=== PATIENT | female | born 2005 | race Asian ===

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

== ENCOUNTER 2023-04-03 08:34 | Outpatient (AMB) | payer BC, OTHER, SELFPAY ==
--- NOTE | 2023-04-03 08:47 | A.OFFPC_ITS ---
Vital Signs 04/03/23 08:50 Height 5 ft 1 in Weight 154 lb 4 oz BMI 29.1 BP 108/64 Blood Pressure Location Rt brachial Position Sitting Pulse 79 Pulse Source Pulse Oximeter Pulse Oximetry (%) 98 Oxygen Delivery Method Room Air Intake Visit Reasons: Annual PE/OK per Dr. Castañeda PHQ9 Is last menstrual period known: Yes Last menstrual period: 03/31/23 Allergies No Known Allergies Allergy (Verified 04/03/23 09:47) Medication List - Last Reconciled 04/03/23 by Katiana Proctor MD copper (ParaGard T 380A) intrauterine tretinoin 0.025% (Retin-A) appl topical Tobacco use date assessed: 04/03/23 Dental Screening Dental Screen Date: 04/03/23 Did you have a dental visit in the last 12 months?: Yes Did you have a dental problem in the last 6 months where you did not have access to dental care?: No Was dental information given to patient?: Patient has dentist HPI Annual PE/OK per Dr. Castañeda PHQ9 HPI Details 17-year-old lady here today for physical exam, and to establish care with a new PCP. She currently uses Retin-A for treatment of acne. Currently home from college for the holidays. Has no complaints at present time. Currently sees her own OBGYN Dr. Cantu, who inserted patient's IUD, currently on Paragard T PFSH Medical History (Updated 04/26/23 @ 19:55 by Katiana Proctor MD) Anxiety and depression Overweight (BMI 25.0-29.9) Acne Surgical History (Updated 04/03/23 @ 09:51 by Katiana Proctor MD) H/O wisdom tooth extraction Family History (Updated 04/26/23 @ 19:49 by Katiana Proctor MD) Mother Essential hypertension Hyperuricemia Valentino's palsy Father Hypercholesteremia Prostate cancer Social History Housing: House Alcohol intake: never Patient Tobacco Use Status: Never used Tobacco e-Cigarette/Vaping Use: Never Used Second Hand Smoke Exposure: No Substance Use Type: Marijuana service: No Current occupational status: student Cognitive needs: No Hearing needs: No Vision needs: No Female Reproductive History Menstrual Date of last menstrual period: 03/31/23 control method: copper IUCD (Inserted by Dr. Cantu) Questionnaire PHQ-9 Over the last 2 weeks, how often have you been bothered by any of the following problems? 1. Little interest or pleasure in doing things: not at all 2. Feeling down, depressed, or hopeless: not at all 3. Trouble falling or staying asleep, or sleeping too much: several days 4. Feeling tired or having little energy: several days 5. Poor appetite or overeating: more than half the days 6. Feeling bad about yourself - or that you are a failure or have let yourself or your family down: not at all 7. Trouble concentrating on things, such as reading the newspaper or watching television: several days 8. Moving or speaking so slowly that other people could have noticed. Or the opposite - being so fidgety or restless that you have been moving around a lot more than usual: not at all 9. Thoughts that you would be better off or of hurting yourself in some way: not at all Total score: 5 Depression Screening Interpretation: Negative Depression Screening Done: Yes 14420 - PHQ-9 Billing: Yes Source: Developed by Drs. Jose C Stahl, Chanda Curtis, Dennis Jarrett and colleagues, with an educational kirk from [employer]. Thrive Questionnaire Date Thrive assessed: 04/03/23 I am a: Patient What is your living situation today?: I have a steady place to live Within the past 12 months, did the food you bought not last and you didn't have the money to get more?: Never true Within the past 12 months, did you worry whether your food would run out before you got money to buy more?: Never true Do you have trouble paying for medicines?: No Do you have trouble getting transportation to medical appointments?: No Do you have trouble paying your heating and electricity bill?: No Do you have trouble taking care of your child, family member or friend?: No Do you have trouble with day-to-day activities such as bathing, preparing meals, shopping, managing finances, etc.?: No Are you currently unemployed and looking for a job?: No Are you interested in more education?: No AUDIT C Alcohol Use Questionnaire (AUDIT-C) 1. How often do you have a drink containing alcohol?: Monthly or less 2. How many drinks containing alcohol do you have on a typical day when you are drinking?: 1 or 2 3. How often do you have six or more drinks on one occasion?: Never Total Score: 1 KLAUS-7 AMB Questionnaire KLAUS-7 Date KLAUS - 7 assessed: 04/03/23 Feeling nervous, anxious, or on edge: 1 = Several days Not being able to stop or control worryin = Several days Worrying too much about different things: 1 = Several days Trouble relaxin = Several days Being so restless that it is hard to sit still: 0 = Not at all Becoming easily annoyed or irritable: 1 = Several days Feeling afraid as if something awful might happen: 0 = Not at all Total KLAUS-7 score (0-4 normal; 5-9 mild; 10-14 moderate; 15-21 severe): 5 Source: Developed by Drs. Jose C Stahl, Chanda Curtis, Dennis Jarrett and colleagues, with an educational kirk from [employer]. KLAUS-7 Assessment Billing KLAUS-7 Assessment Tool: KLAUS-7 Assessment 07230 Review of Systems Const Denies body aches, Denies headache(s) and Denies weakness Eyes Denies change in vision ENT Denies dizziness, Denies headache(s), Denies nasal congestion, Denies nasal discharge and Denies sore throat Card Denies chest pain, Denies lightheadedness, Denies palpitations and Denies dyspnea Resp Denies chest congestion, Denies cough, Denies dyspnea and Denies wheezing GI Denies abdominal pain, Denies change in bowel habits and Denies heartburn Denies hematuria, Denies urinary frequency, Denies dysuria and Denies urinary urgency Musc Reports no additional complaints Skin/Breast Denies breast pain, Denies breast mass, Denies lesions and Denies rash Neuro Denies dizziness, Denies headache(s) and Denies weakness Psych Reports no additional complaints Endo Denies polydipsia, Denies polyuria and Denies palpitations Evangelista/Lymph Reports no additional complaints and Denies easy bruising Aller/Immun Denies seasonal rhinorrhea and Denies wheezing Physical exam (Primary Care) Vital Signs: Last Vital Signs Pulse 79 04/03/23 08:50 BP 108/64 04/03/23 08:50 Pulse Ox 98 12/27/23 08:50 Oxygen Delivery Method Room Air 04/03/23 08:50 BMI result Body Mass Index 29.1 Tobacco/Smoking Status: Tobacco use Status Tobacco use date assessed 04/03/23 04/03/23 08:58 Patient Tobacco Use Status Never used Tobacco 04/03/23 08:47 e-Cigarette/Vaping Use Never Used 04/03/23 08:58 PHQ-9: PHQ-9 Score PHQ-9: Total score 5 04/26/23 19:51 Depression Screening Interpretation: Negative Thrive Assessment: Date of Thrive Assessment Date Thrive assessed 04/03/23 04/03/23 10:14 Const General: no acute distress and alert Nutritional Appearance: overweight Orientation/consciousness: patient oriented x3 HENMT Head: Yes normocephalic and Yes atraumatic Ears: external ears normal, TM's normal bilaterally and EAC's normal General nose exam: Normal external nose present and No nasal discharge present Face and sinus: Yes face symmetric Mouth: Normal oral and palatal mucosa present, lip normal, tongue normal, oropharynx normal and moist mucous membranes Eyes General: appearance normal, both eyes and all related structures Eyelids: Yes eyelids normal Conjunctivae: conjunctivae normal Sclerae: sclerae normal Pupils: Equal, round and reactive pupils present EOM: EOMs intact bilaterally Neck Neck: Yes full ROM, Yes no lymphadenopathy and Yes supple Thyroid: Thyroid normal Resp Effort & Inspection: normal respiratory effort and able to speak in complete s entences Auscultation: clear to auscultation bilaterally Cardio Rate: regular rate Rhythm: regular rhythm Heart sounds: S1 normal heart sound present and S2 normal heart sound present GI Palpation (GI): Soft to palpation, nontender, no guarding and no masses Auscultation: normal bowel sounds General: Yes no CVA tenderness Back/Spine/Pelvis Back: no CVA tenderness and No back tenderness Skin General skin exam: no rashes or lesions noted Neuro General: patient oriented x3, gait normal, moves all extremities, Normal light touch and pain sensation, no focal motor deficits and CN's II-XI intact bilaterally Cranial nerves: Yes Equal, round and reactive pupils present Cognition (Neuro): normal cognition Gait exam (Neuro): Normal gait present Motor exam (neuro): 5/5 motor strength present throughout Extrem General: Yes normal to inspection, Yes full ROM, Yes no joint enlargement, Yes no pedal edema and Yes normal gait Psych Appearance: grossly normal and well kempt Mental Status: mental status grossly normal Speech and movement: Normal speech and movement present Affect: normal affect Attitude: cooperative Thought process: Normal thought process present Thought content: Normal thought content present Office Procedures Flu Questionnaire Does the patient have a severe egg allergy?: No Does the patient have severe life threatening allergies?: No Does the patient have a fever or illness today?: No Has the patient ever had Guillain-[place] Syndrome?: No Has the patient ever had any past reaction to a flu shot?: No Immunizations flu vacc [id number] 6mos up(PF) 60 mcg(15 mcgx4)/0.5 mL IM syringe Performing Provider: Katiana Proctor MD [facility] Administered by: Kanwal Jasso CMA on 04/03/23 10:08 Dose Route Admin Location Dispensed Lot Number Expiration Date NDC Encapsulator 0.5 mL IM Left Deltoid 0.5 mL [id number] 10/06/23 06677-997-85 [employer] VIS Given Date VIS Provided VIS Publication Date 04/03/23 Single Vaccine 20 Eligibility Eligibility Date Funding Source Not [facility] Eligible 04/03/23 Private Assessment and Plan Assessment & Plan (1) Adult general medical exam: Code(s): Z00.00 - Encounter for general adult medical examination without abnormal findings Plan: Will check appropriate labs. continue with regular dental visit every 6 months and regular eye exams, at least every 2 years. T Instructed to do self-breast exam, and recommended to get yearly mammogram, starting at age 40. Flu vaccine given today, reminded to get COVID booster, up-to-date HPV vaccination and pneumococcal vaccine. Currently sees her own OBGYN, Dr. Cantu (2) Acne: Code(s): L70.9 - Acne, unspecified Qualifiers: Acne type: acne vulgaris Qualified Code(s): L70.0 - Acne vulgaris Plan: Currently on Retin-A (3) Overweight (BMI 25.0-29.9): Code(s): E66.3 - Overweight Plan: Reinforced importance of getting regular exercise and adhering to healthy eating habits, avoidance of a lot of fast foods, processed foods Orders: Orders Influenza [id number] Immunization 04/03/23 Z23 - Encounter for immunization Complete Blood Count Auto Diff 04/05/23 Z00.00 - Encounter for general adult medical examination without abnormal findings, L70.9 - Acne, unspecified, E66.3 - Overweight TSH reflex Free T4 04/05/23 Z00.00 - Encounter for general adult medical examination without abnormal findings, L70.9 - Acne, unspecified, E66.3 - Overweight Vitamin D 25-OH Total 04/05/23 Z00.00 - Encounter for general adult medical examination without abnormal findings, L70.9 - Acne, unspecified, E66.3 - Overweight Comprehensive [place]. Panel Fast 04/05/23 Z00.00 - Encounter for general adult medical examination without abnormal findings, L70.9 - Acne, unspecified, E66.3 - Overweight Lipid Panel 04/05/23 Z00.00 - Encounter for general adult medical examination without abnormal findings, L70.9 - Acne, unspecified, E66.3 - Overweight Coding Level of Care Code New Pt Prev Care 18-39yr([id number] Diagnoses Adult general medical exam Z00.00 Acne vulgaris L70.0 Acne type: acne vulgaris Overweight (BMI 25.0-29.9) E66.3 Additional Codes KLAUS-7 Assessment Billing - KLAUS-7 Assessment Tool: KLAUS-7 Assessment [id number] ([id number])
[2023-04-03 08:50] VITALS: BP 108/64; PULSE 79; O2SAT 98; BMI 29.1
== END 2023-04-03 10:16 | disposition home or self-care (01) ==
PROVIDERS: PCP Internal Medicine; Visit Provider Internal Medicine
DX: Z23 Encounter for immunization (principal)
CPT/HCPCS: 90471; 90686; 99385

== ENCOUNTER 2023-04-05 06:52 | Outpatient (REF) | payer BC, OTHER, SELFPAY ==
[2023-04-05 11:40] LABS: MANUAL DIFF FLAG NO
[2023-04-05 11:56] LABS: Basophils Percent Auto 0.5 % (0-2); Eosinophils Absolute Auto 0.2 X10*3/uL (0.0-0.4); Eosinophils Percent Auto 2.4 % (0-4); Hemoglobin 14.3 g/dl (12.0-16.0); Imm Gran Abs Auto 0.02 X10*3/uL (0.00-0.03); Imm Gran Pct Auto 0.3 % (0.0-0.4); Lymphocytes Absolute Auto 1.4 X10*3/uL (1.2-4.9); Lymphocytes Percent Auto 23.2 % (20-40); Mean Corpuscular Hemoglobin 29.7 pg (27.0-33.0); Mean Corpuscular Volume 87.1 fL (80.0-98.0); Mean Platelet Volume 9.8 fL (9.4-12.3); Monocytes Absolute Auto 0.5 X10*3/uL (0.1-1.2); Monocytes Percent Auto 7.9 % (2-11); Neutrophils Absolute Auto 4.1 x10*3/uL (2.0-8.3); Neutrophils Percent Auto 65.7 % (45-73); Platelet Count 284 X10*3/uL (160-400); Red Blood Count 4.82 X10*6/uL (4.20-5.50); Red Cell Distribution Width 12.4 % (11.0-16.0); White Blood Count 6.2 X10*3/uL (4.8-10.8)
[2023-04-05 12:08] LABS: Alanine Aminotransferase 18 U/L (0-31); Albumin Level 4.4 g/dL (3.5-5.0); Alkaline Phosphatase 61 U/L (39-117); Anion Gap 10 (12-20); Aspartate Amino Transferase 24 U/L (5-31); Bilirubin Total 0.9 mg/dL (0.0-1.0); Blood Urea Nitrogen 14 mg/dL (9-16); Calcium 9.4 mg/dL (8.4-10.2); Carbon Dioxide 26 mmol/L (22-29); Chloride 106 mmol/L (96-108); Cholesterol 182 mg/dL (<200); Estimated Glomerular Filt Rate > 60; Glucose Fasting 86 mg/dL (60-99); HDL Cholesterol 70 mg/dL (>40); LDL Cholesterol Calculated 97 mg/dL (<100); Potassium 3.9 mmol/L (3.3-5.1); Sodium 138 mmol/L (135-145); Total Protein 7.4 g/dL (6.5-8.0); Triglycerides 76 mg/dL (<150)
[2023-04-05 12:25] LABS: TSH reflex Free T4 1.53 uIU/mL (0.32-4.0); Vitamin D 25-OH Total 48.1 ng/mL (>30)
== END 2023-04-05 06:53 | disposition home or self-care (01) ==
LOC: HO.HMGCLDS 06:52
PROVIDERS: PCP Internal Medicine; Visit Provider Internal Medicine
DX: Z00.00 Encounter for general adult medical examination without abnormal findings (principal); L70.9 Acne, unspecified; E66.3 Overweight
CPT/HCPCS: 36415; 80053; 80061; 82306; 84443; 85025

== ENCOUNTER 2024-03-24 08:18 | Outpatient (REF) | payer BC, OTHER, SELFPAY ==
[2024-03-24 10:11] LABS: Hematocrit 41.3 % (37.0-47.0); Hemoglobin 14.1 g/dl (12.0-16.0)
[2024-03-24 10:33] LABS: Alanine Aminotransferase 17 U/L (0-31); Aspartate Amino Transferase 15 U/L (5-31); Cholesterol 180 mg/dL (<200); Glucose Fasting 92 mg/dL (60-99); HDL Cholesterol 66 mg/dL (>40); LDL Cholesterol Calculated 99 mg/dL (<100); Triglycerides 75 mg/dL (<150)
== END 2024-03-24 08:19 | disposition home or self-care (01) ==
LOC: HO.HMGCLDS 08:18
PROVIDERS: PCP Internal Medicine; Visit Provider Internal Medicine
DX: Z00.00 Encounter for general adult medical examination without abnormal findings (principal); E66.3 Overweight; L70.0 Acne vulgaris; Z13.220 Encounter for screening for lipoid disorders; Z13.1 Encounter for screening for diabetes mellitus
CPT/HCPCS: 36415; 80061; 82306; 82947; 84450; 84460; 85014; 85018

== ENCOUNTER 2024-04-09 14:30 | Outpatient (AMB) | payer BC, OTHER, SELFPAY ==
--- NOTE | 2024-04-09 14:39 | MHC.PC.OV ---
Vital Signs 04/09/24 15:08 Height 5 ft 1 in Weight 145 lb BMI 27.4 BP 100/62 Blood Pressure Location Lt brachial Position Sitting Pulse 71 Pulse Source Pulse Oximeter Pulse Oximetry (%) 98 Oxygen Delivery Method Room Air Intake Visit Reasons: PE per Dr. Awad Intake Note: Pt is here today for her PE Is last menstrual period known: Yes Last menstrual period: 03/19/24 Allergies No Known Allergies Allergy (Verified 04/09/24 15:29) Medication List - Last Reconciled 04/09/24 by Katiana Proctor MD mupirocin calcium 2% 1 appl topical BID 5 days valacyclovir 1,000 mg PO DAILY Tobacco use date assessed: 04/09/24 Dental Screening Dental Screen Date: 04/10/23 Did you have a dental visit in the last 12 months?: Yes Did you have a dental problem in the last 6 months where you did not have access to dental care?: Yes Was dental information given to patient?: Patient has dentist HPI PE per Dr. Awad HPI Details 18-year-old lady here today for her physical exam. She has been feeling well, up-to-date with all her vaccines. Sees Dr. Cantu for her routine Pap and pelvic exam which is currently up-to-date. Copy of report requested. She has recurrent cold sores, would like a refill on her valacyclovir take as needed. Was seen at urgent care clinic for cellulitis in her right ear after ear piercing in the cartilage. States that she finished already taking prescription for cephalexin but still feels some at swelling over the said area. [facility] Medical History (Updated 04/12/24 @ 18:27 by Katiana Proctor MD) Recurrent cold sores Overweight (BMI 25.0-29.9) Acne Surgical History H/O wisdom tooth extraction Family History Mother Essential hypertension Hyperuricemia Valentino's palsy Father Hypercholesteremia Prostate cancer Social History Housing: House Alcohol intake: never Patient Tobacco Use Status: Never used Tobacco e-Cigarette/Vaping Use: Never Used Second Hand Smoke Exposure: No Substance Use Type: Marijuana service: No Current occupational status: student Cognitive needs: No Hearing needs: No Vision needs: No Female Reproductive History Menstrual Date of last menstrual period: 03/19/24 Other: Sees her own OBGYN for routine Pap and pelvic exam, currently up-to-date Questionnaire PHQ-9 Over the last 2 weeks, how often have you been bothered by any of the following problems? 1. Little interest or pleasure in doing things: not at all 2. Feeling down, depressed, or hopeless: not at all 3. Trouble falling or staying asleep, or sleeping too much: several days 4. Feeling tired or having little energy: several days 5. Poor appetite or overeating: several days 6. Feeling bad about yourself - or that you are a failure or have let yourself or your family down: not at all 7. Trouble concentrating on things, such as reading the newspaper or watching television: several days 8. Moving or speaking so slowly that other people could have noticed. Or the opposite - being so fidgety or restless that you have been moving around a lot more than usual: not at all 9. Thoughts that you would be better off or of hurting yourself in some way: not at all Total score: 4 Depression Screening Interpretation: Negative Depression Screening Done: Yes 31477 - PHQ-9 Billing: Yes Source: Developed by Drs. Jose C Stahl, Chanda Curtis, Dennis Jarrett and colleagues, with an educational kirk from [employer]. Thrive Questionnaire Date Thrive assessed: 04/09/24 I am a: Patient What is your living situation today?: I have a steady place to live Within the past 12 months, did the food you bought not last and you didn't have the money to get more?: Never true Within the past 12 months, did you worry whether your food would run out before you got money to buy more?: Never true Do you have trouble paying for medicines?: No Do you have trouble getting transportation to medical appointments?: No Do you have trouble paying your heating and electricity bill?: No Do you have trouble taking care of your child, family member or friend?: No Do you have trouble with day-to-day activities such as bathing, preparing meals, shopping, managing finances, etc.?: No Are you currently unemployed and looking for a job?: No Are you interested in more education?: No Please select the resources that you would like help with: None Currently or been in a relationship where the following occur: No concerns reported THRIVE Score: 0 AUDIT C Alcohol Use Questionnaire (AUDIT-C) 1. How often do you have a drink containing alcohol?: Monthly or less 2. How many drinks containing alcohol do you have on a typical day when you are drinking?: 1 or 2 3. How often do you have six or more drinks on one occasion?: Never Total Score: 1 KLAUS-7 AMB Questionnaire KLAUS-7 Date KLAUS - 7 assessed: 04/09/24 Feeling nervous, anxious, or on edge: 1 = Several days Not being able to stop or control worryin = Not at all Worrying too much about different things: 0 = Not at all Trouble relaxin = Several days Being so restless that it is hard to sit still: 0 = Not at all Becoming easily annoyed or irritable: 1 = Several days Feeling afraid as if something awful might happen: 0 = Not at all Total KLAUS-7 score (0-4 normal; 5-9 mild; 10-14 moderate; 15-21 severe): 3 Source: Developed by Drs. Jose C Stahl, Chanda Curtis, Dennis Jarrett and colleagues, with an educational kirk from [employer]. KLUAS-7 Assessment Billing KLAUS-7 Assessment Tool: KLAUS-7 Assessment 61871 Review of Systems Const Denies body aches, Denies headache(s) and Denies weakness Eyes Denies change in vision ENT Denies dizziness, Denies headache(s), Denies nasal congestion, Denies nasal discharge and Denies sore throat Card Denies chest pain, Denies lightheadedness, Denies palpitations and Denies dyspnea Resp Denies chest congestion, Denies cough, Denies dyspnea and Denies wheezing GI Denies abdominal pain, Denies change in bowel habits and Denies heartburn Denies hematuria, Denies urinary frequency, Denies dysuria and Denies urinary urgency Musc Reports no additional complaints Skin/Breast Reports as per HPI, Denies breast pain, Denies breast mass and Denies rash Neuro Denies dizziness, Denies headache(s) and Denies weakness Psych Reports no additional complaints Endo Denies polydipsia, Denies polyuria and Denies palpitations Evangelista/Lymph Reports no additional complaints and Denies easy bruising Aller/Immun Denies seasonal rhinorrhea and Denies wheezing Physical exam (Primary Care) Vital Signs: Last Vital Signs Pulse 71 04/09/24 15:08 BP 100/62 04/09/24 15:08 Pulse Ox 98 04/09/24 15:08 Oxygen Delivery Method Room Air 04/09/24 15:08 BMI result Body Mass Index 27.4 Tobacco/Smoking Status: Tobacco use Status Tobacco use date assessed 04/09/24 04/09/24 14:50 Patient Tobacco Use Status Never used Tobacco 04/09/24 14:39 e-Cigarette/Vaping Use Never Used 04/09/24 14:39 PHQ-9: PHQ-9 Score PHQ-9: Total score 4 04/09/24 15:34 Depression Screening Interpretation: Negative Thrive Assessment: Date of Thrive Assessment Date Thrive assessed 04/09/24 04/09/24 15:11 Currently or been in a relationship where the following occur: No concerns reported Advance Care Planning discussion: Completed/Scanned Date of discussion: 04/09/24 Who was present: Patient Forms completed: Health Care Proxy Time spent: 16-45 minutes Actual minutes spent: 2 Const General: no acute distress and alert Nutritional Appearance: overweight Orientation/consciousness: patient oriented x3 HENMT Head: Yes normocephalic and Yes atraumatic Ears: external ears normal, TM's normal bilaterally and EAC's normal General nose exam: Normal external nose present and No nasal discharge present Face and sinus: Yes face symmetric Mouth: Normal oral and palatal mucosa present, lip normal, tongue normal, oropharynx normal and moist mucous membranes Eyes General: appearance normal, both eyes and all related structures Eyelids: Yes eyelids normal Conjunctivae: conjunctivae normal Sclerae: sclerae normal Pupils: Equal, round and reactive pupils present EOM: EOMs intact bilaterally Neck Neck: Yes full ROM, Yes no lymphadenopathy and Yes supple Thyroid: Thyroid normal Chest Breast/axilla palpation: normal palpation of the breasts Resp Effort & Inspection: normal respiratory effort and able to speak in complete sentences Auscultation: clear to auscultation bilaterally Cardio Rate: regular rate Rhythm: regular rhythm Heart sounds: S1 normal heart sound present and S2 normal heart sound present GI Palpation (GI): Soft to palpation, nontender, no guarding and no masses Auscultation: normal bowel sounds General: Yes no CVA tenderness Back/Spine/Pelvis Back: no CVA tenderness and No back tenderness Skin General skin exam: no rashes or lesions noted Neuro General: patient oriented x3, gait normal, moves all extremities, Normal light touch and pain sensation, no focal motor deficits and CN's II-XI intact bilaterally Cranial nerves: Yes Equal, round and reactive pupils present Cognition (Neuro): normal cognition Gait exam (Neuro): Normal gait present Motor exam (neuro): 5/5 motor strength present throughout Extrem General: Yes normal to inspection, Yes full ROM, Yes no joint enlargement, Yes no pedal edema and Yes normal gait Psych Appearance: grossly normal and well kempt Mental Status: mental status grossly normal Speech and movement: Normal speech and movement present Affect: normal affect Attitude: cooperative Thought process: Normal thought process present Thought content: Normal thought content present Office Procedures Flu Questionnaire Does the patient have a severe egg allergy?: No Does the patient have severe life threatening allergies?: No Does the patient have a fever or illness today?: No Has the patient ever had Guillain-Clayton Syndrome?: No Has the patient ever had any past reaction to a flu shot?: No Immunizations Fluarix Triv [id number] (PF) 45 mcg (15 mcg x 3)/0.5 mL IM syringe Performing Provider: Katiana Proctor MD Performing Location: [facility] [place] [facility] Administered by: Maryann Chaudhry CMA on 04/09/24 15:21 Dose Route Admin Location Dispensed Lot Number Expiration Date [facility] Chemical Equipment Controller 0.5 mL IM Left Deltoid 0.5 mL [id number] 10/05/24 [id number] [employer] VIS Given Date VIS Provided VIS Publication Date 04/09/24 Single Vaccine 20 Eligibility Eligibility Date Funding Source Not [facility] Eligible 04/09/24 Private Coding Level of Care Code Est Pt Prev Care 18-39y(24790) Diagnoses Annual visit for general adult medical examination with abnormal findings Z00.01 Recurrent cold sores B00.1 Acute otitis externa of right ear H60.501 Advanced directives, counseling/discussion Z71.89 Additional Codes KLAUS-7 Assessment Billing - KLAUS-7 Assessment Tool: KLAUS-7 Assessment 68136 ([id number]) PHQ-9 - 26056 - PHQ-9 Billing: Yes ([id number]) Vital Signs *Quality* - Advance Care Planning discussion: Completed/Scanned ([id number]) Vital Signs *Quality* - Time spent: 16-45 minutes ([id number]) Assessment & Plan Assessment & Plan (1) Annual visit for general adult medical examination with abnormal findings: Code(s): Z00.01 - Encounter for general adult medical examination with abnormal findings Plan: Reviewed recent fasting lab results with patient all within normal limits. Continue with regular dental visit every 6 months and regular eye exams, at least every 2 years. Take adequate calcium in diet and vitamin-D 3 at 2000 IU per cap once a day, in addition to weight-bearing exercises to help maintain good muscle tone and weight control. Instructed to do self-breast exam, and is up-to-date with her routine Pap and pelvic exam. Sees her own OBGYN.. Flu vaccine given today. Declined to get COVID booster, up-to-date with her Tdap (2) Recurrent cold sores: Code(s): B00.1 - Herpesviral vesicular dermatitis Category: Medical Plan: Prescription sent for valacyclovir to take as directed (3) Acute otitis externa of right ear: Code(s): H60.501 - Unspecified acute noninfective otitis externa, right ear Category: Medical Plan: Prescription sent for mupirocin calcium 2% cream apply twice a day to affected area for no more than 5 days. Return to clinic if no complete resolution of symptoms (4) Advanced directives, counseling/discussion: Code(s): Z71.89 - Other specified counseling Plan: Initiated the conversation about Advanced Directives. Advanced Directives help patients prepare for current and future decisions about their medical treatment and place of care. Discussed with patient that it is a process where a patients current condition and prognosis are reviewed, their wishes for information regarding their illness are elicited, and likely medical dilemmas are presented and options discussed. Healthcare proxy form completed today. The form can be amended as needed, reviewed yearly and make changes as needed Orders: Orders Influenza [id number] Immunization 04/09/24 Z23 - Encounter for immunization Medications: New valacyclovir 1,000 mg PO DAILY 30 tabs 0RF mupirocin calcium 2% 1 appl topical BID 5 days 30 grams 0RF
[2024-04-09 15:08] VITALS: BP 100/62; PULSE 71; O2SAT 98; BMI 27.4
== END 2024-04-09 15:51 | disposition home or self-care (01) ==
PROVIDERS: PCP Internal Medicine; Visit Provider Internal Medicine
DX: Z23 Encounter for immunization (principal)

== ENCOUNTER → 2024-04-09 14:30 | Outpatient (BNVA) | payer BC, OTHER, SELFPAY | PROVIDERS: PCP Internal Medicine; Visit Provider Internal Medicine | DX: Z00.01 Encounter for general adult medical examination with abnormal findings (principal); Z23 Encounter for immunization; B00.1 Herpesviral vesicular dermatitis; H60.501 Unspecified acute noninfective otitis externa, right ear; Z71.89 Other specified counseling | CPT/HCPCS: 90471; 90656; 96127 ==

== ENCOUNTER 2024-09-02 08:53 | Outpatient (AMB) | payer BC, OTHER, SELFPAY ==
--- OUTSIDE RECORDS SUMMARY | 2024-09-02 09:14 | XMS_ITS | Data Portability ---
Author Organization GENEVA Santos s, [address] Address [address] [place] [address] Care Team Providers Care Supervisor Aircraft Cleaning Name Role Phone [facility] Primary Care Provider [phone] Assessment No assessment recorded. Plan of Treatment Reminders Order Date Submit Date Provider Last Modified By Organization Details Last Modified Time Details Appointments None recorded. Lab None recorded. Referral catechist referral - right foot planter wart . need further evaluation and treatment. 2022 023 florian Simpson DP, [address] [place] [address], [id number], 3 08:40:00 Procedures None recorded. Surgeries None recorded. Imaging None recorded. Medication Orders valacyclovi r 1 gram tablet 2023 024 [email or web address] [facility]armacy #[id number], [address] [place], [address], 4 08:44:01 cephalexin 500 mg capsule 2022 023 [email or web address] [facility]/Pharmacy #[id number], [address] [place], [address], 4 08:28:43 Patient TargetsNo targets recorded. Patient Instructions Encounter Date Encounter Id Patient Instructions Last Modified By Organization Details Last Modified Time 02/27/2023 [id number] cellulitis: care instructions [email or web address] Not available 02/27/2023 08:38:49 skin abscess: ca re instructions Not available 02/27/2023 08:38:50 Cellulitis is a skin infection caused by bacteria, most often strep or staph. It often occurs after a break in the skin from a scrape, cut, bite, or puncture, or after a rash. Cellulitis may be treated without doing tests to find out what caused it. But your doctor may do tests, if needed, to look for a specific bacteria, like methicillin-resist ant Staphylococcus aureus (MRSA). The doctor has checked you carefully, but problems can develop later. If you notice any problems or new symptoms, get medical treatment right away. How can you care for yourself at home? Take your antibiotics as directed. Do not stop taking them just because you feel better. You need to take the full course of antibiotics. Prop up the infected area on pillows to reduce pain and swelling. Try to keep the area above the level of your heart as often as you can. If your doctor told you how to care for your infection, follow your doctor's instructions. If you did not get instructions, follow this general advice: Wash the area with clean water 2 times a day. Don't use hydrogen peroxide or alcohol, which can slow healing. You may cover the area with a thin layer of petroleum jelly, such as Vaseline, and a non-stick bandage. Apply more petroleum jelly and replace the bandage as needed. Be safe with medicines. Take pain medicines exactly as directed. If the doctor gave you a prescription medicine for pain, take it as prescribed. If you are not taking a prescription pain medicine, ask your doctor if you can take an [id number] medicine. Not available 02/27/2023 08:39:04 Skin warts are raised round or oval growths. They can be property adjuster or darker than the skin around them. Some warts have tiny blood vessels that look like black dots in them. These dots are often called seeds. Warts can appear alone or in groups that join and form patches. Different types of warts affect different parts of the body: ? Common skin warts can show up anywhere on the skin but most often affect the fingers, hands, knees, and elbows ? When common warts are found around the fingernails, they are called periungual warts ? Plantar warts are found on the soles (bottoms) of the feet ? Flat warts are usually found on the back of the hands, face, and lower legs What causes skin warts? Warts are caused by germs called viruses. You can get infected with the virus that causes warts by touching another person's wart. You can also get infected by touching objects that have the virus on them. For instance, people can catch warts by walking barefoot around pools, locker rooms, or gyms. Should I see a doctor or nurse about my wart? You should see a doctor or nurse if: ? You are not sure that what you have is a wart ? Your wart does not go away with home treatment ? You would like to use home treatment, but are not sure which treatment is right for you Not everyone needs treatment for warts. Some warts go away on their own within 2 years. But warts can also get bigger or spread, so many people decide to treat their warts. Is there anything I can do on my own to get rid of warts? You can try something called salicylic acid. This is a mild acid that you put on warts. It is sold in drugstores and comes in different forms, such as a liquid, patch, or stick. If you decide to try salicylic acid, follow the directions on the label. But do not use this treatment if you have a form of nerve damage called neuropathy. How do doctors and nurses treat warts? Doctors and nurses have a few ways to treat warts. They often suggest combining the treatments they use with an at-home treatment, like salicylic acid. Some of the things a doctor or nurse can do to treat warts are: ? Freeze the wart off with a special fluid that gets very cold (called liquid nitrogen) ? Treat the wart with a medicine called cantharidin that destroys warts. This treatment is not painful at first, but it sometimes causes pain, blisters, and swelling shortly after use. ? Shave the wart off with a special blade (after numbing the skin) ? Prescribe a skin cream that helps the body get rid of warts ? Inject the wart with a medicine that helps the body fight the virus that causes warts If you have one of these treatments, ask your doctor or nurse what to expect after treatment. That way, if your skin starts to hurt or turns red you will know if it is normal. But if your skin starts to form pus, you should call your doctor or nurse right away. harmony Not available 02/27/2023 08:39:10 09/05/2023 [id number] What is herpes? ? Herpes is a disease that can cause blisters and open sores on the genital area. Herpes is caused by a virus that is passed from person to person during vaginal, oral, or anal sex. Sometimes, people do not know they have herpes because they do not have any symptoms. Herpes cannot be cured. But the disease usually causes most problems during the first few years. After that, the virus is still there, but it causes few to no symptoms. Even when the virus is active, people with herpes can take medicines to reduce and help prevent symptoms. What are the symptoms of herpes? ? Some people with herpes never have any symptoms. But other people can develop symptoms within a few weeks of being infected with the herpes virus. Symptoms usually include blisters in the genital area. In women, this area includes the vagina, butt, anus, or thighs. In men, this area includes the penis, scrotum, anus, butt, or thighs. The blisters can become painful open sores which then crust over as they heal. Sometimes, people can have other symptoms that include: ? Blisters on the mouth or lips ? Fever, headache, or pain in the joints ? Trouble urinating In people with herpes, symptoms usually go away and come back. A return of symptoms is called an outbreak. Outbreaks usually include blisters and open sores in the genital area. In most people, the first outbreak is the worst and can last as long as 2 to 3 weeks. Outbreaks that happen later are usually not as severe and do not last as long. Outbreaks might occur every month or more often, or just once or twice a year. Sometimes, people can tell when an outbreak will occur, because they feel itching or pain beforehand. Sometimes they do not know that an outbreak is coming because they have no symptoms. Whatever your pattern is, keep in mind that herpes outbreaks usually become less frequent over time as you get older. Certain things, called triggers, can make outbreaks more likely to occur. These include stress, sunlight, menstrual periods, or getting sick. Not available 09/05/2023 08:42:23 Reason for Referral Art Class Model Referral for Plan tar wart of right foot right foot planter wart . need further evaluation and treatment. right foot planter wart . need further evaluation and treatment. Referring Physician: Scar Viramontes, Urgent Care, Encounter Date: 02/27/2023 Problems No Known Problems Procedures Surgical History Date Name Laterality Status Provider Name and Address Organization Details Recorded Time 8 extraction of wisdom tooth completed MARY ELLEN BEAN - [facility] 02/27/2023 08:25:30 Imaging Results None recorded. Procedure Notes None recorded. Medical Equipment None Reported. Allergies No known drug allergies Medications Name Sig Start Date Stop Date Status Note LastModified by Organization Details LastModified Time Retin-A 0.025 % topical cream APPLY PEA SIZE AMOUNT TO FACE EVERY OTHER NIGHT & GRADUALLY INCREASE TO EVERY NIGHT TOLERATED active Not Available Not Available No t Available valacyclovi r 1 gram tablet Take 2 tablets twice a day by oral route for 1 day. 2023 active Not Available Not Available Not Avai lable benzoyl peroxide 10 % topical cleanser APPLY TO FACE EVERY MORNING 02/27 completed Not Available Not Available Not Available valacyclovi r 500 mg tablet active Not Available Not Available Not Available clindamycin 1 % topical gel APPLY TO FACE EVERY AM, AFTER BENZOYL PEROXIODE WASH 02/27 completed Not Available Not Available Not Available benzonatate 100 mg capsule 02/27 completed Not Available Not Available Not Available cephalexin 500 mg capsule TAKE 1 CAPSULE BY MOUTH EVERY 8 HOURS WITH MEALS FOR 7 DAYS 09/04 completed Not Available Not Available Not Available misoprostol 200 mcg tablet TAKE 2 TABLETS BY MOUTH ONCE THE NIGHT BEFORE PROCEDURE 02/27 completed Not Available Not Available Not Available ibuprofen 600 mg tablet TAKE 1 TABLET BY MOUTH EVERY 8 HOURS NEEDED 02/27 completed Not Available Not Available Not Available ParaGard T 380A 380 square mm intrauterin e device active Not Available Not Available Not Available Mucus Relief ER 600 mg tablet, extended release TAKE 1 TO 2 TABLETS BY MOUTH 2 TIMES DAILY NEEDED FOR COUGH FOR UP TO 7 DAYS. MAX DOSE IS 4 TABLETS PER DAY 02/27 completed Not Available Not Available Not Available Phexxi 1.8 %-1 %-0.4 % vaginal gel INSERT 1 APPLICATO RFUL VAGINALLY 1 HOUR BEFORE INTERCOUR SE. REPEAT WITHIN 1 HOUR BEFORE NEEDED 02/27 completed Not Available Not Available Not Available Vitals Date Recorded Body height Body mass index (BMI) Percentile per age and sex Body mass index (BMI) Body weight Oxygen saturation Oxygen saturation in Arterial blood by Pulse oximetry Heart rate Respiratory rate Body temperature Systolic blood pressure Diastolic blood pressure Provider Name and Address Organization Details Last Updated DateTime 4 154.94 cm 85 % 26.5 kg/m2 18730.9 3 g 97 % 97 % 62 /min 18 /min 97.5 [degF] 105 mm[Hg] 71 mm[Hg] Mariah João [place] - [facility] 4 08:27:54 Date Recorded Body height Respiratory rate Body mass index (BMI) Body mass index (BMI) Percentile per age and sex Body weight Oxygen saturation Oxygen saturation in Arterial blood by Pulse oximetry Heart rate Body temperature Systolic blood pressure Diastolic blood pressure Provider Name and Address Organization Details Last Updated DateTime 3 154.94 cm 18 /min 28 kg/m2 90 % 69884.6 7 g 97 % 97 % 72 /min 97.5 [degF] 106 mm[Hg] 70 mm[Hg] MARY ELLEN NELSON [employer] [facility] 3 08:27:00 Social History Question Answer Notes LastModified by [place] Details LastModified Time Tobacco Smoking Status Never Smoker MARY ELLEN alba [place] - [facility] 02/27/2023 08:25:14 Have You Had A Flu Shot This Season? No Information not available 02/27/2023 If No, Would You Like A Flu Shot Today? No Information not available 02/27/2023 What Is Your Relationship Status? Single [email or web address] Information not available 09/05/2023 Have You Recently Traveled Abroad? No Information not available 02/27/2023 Are You Currently In School? Yes Information not available 02/27/2023 Sex: Unknown Functional Status Question Answer Note LastModified by [place] Details LastModified Time Do you use any illicit or recreational drugs? No Information not available 02/27/2023 Do you or have you ever used any other forms of tobacco or nicotine? No Information not available 02/27/2023 What is your level of alcohol consumption? None Information not available 02/27/2023 Are you currently employed? No Information not available 02/27/2023 Mental Status None recorded. Family History Relationship Description Onset Age of this Age Resolved Age Notes LastModified by Organization Details LastModified Time Father No current problems or disability Not available 02/27 08:24:59 Mother No current problems or disability Not available 02/27 08:24:59 Medical History No medical history recorded. Gynecological History Statement/Question Response Date of LMP 02/13/2023 Is there any chance of ? No LMP Approximate Obstetrics History GPAL:G 0 P 0 0 0 0 Immunizations Vaccine Type Date Status Note Provider Nam e and Address Organization Details Recorded Time meningococcal B, recombinant 1 completed Mariah João null, [place] - [facility] 09/05/2023 08:28:26 HPV9 0 completed Mariah João null, [place] - [facility] 09/05/2023 08:28:26 COVID-19, mRNA, LNP-S, PF, 30 mcg/0.3 mL dose 1 completed Mariah João null, [place] - [facility] 09/05/2023 08:28:26 COVID-19, mRNA, LNP-S, PF, 30 mcg/0.3 mL dose 1 completed Mariah João null, [place] - [facility] 09/05/2023 08:28:26 COVID-19, mRNA, LNP-S, PF, 30 mcg/0.3 mL dose 1 completed Mariah João null, [place] - [facility] 09/05/2023 08:28:26 Influenza, split virus, quadrivalent, PF 2 completed Mariah João null, [place] - [facility] 09/05/2023 08:28:26 Influenza, split virus, quadrivalent, PF 8 completed Mariah João null, [place] - [facility] 09/05/2023 08:28:26 Influenza, split virus, quadrivalent, PF 2 completed Mariah João null, [place] - [facility] 09/05/2023 08:28:26 Past Encounters Encounter ID Performer Location Encounter Start Date Encounter Closed Date Diagnosis/Indication Diagnosis SNOMED-CT Code Diagnosis ICD10 Code Diagnosis Note [id number] [address] [facility] [address] 11/05/2021 08:25:26 11/05/2021 09:47:34 [id number] Scar Viramontes, FIBER DRIER OPERATOR [address] [place] [facility] [place] [address] 02/27/2023 08:17:33 02/27/2023 08:40:00 Cellulitis of right foot 1006147910 0815177 L03.115 Plantar wa rt of right foot [id number] 9772820 B07.0 [id number] [address] [address] [place] [facility] [address] 09/05/2023 08:07:49 09/05/2023 08:47:14 Herpes labialis [id number] B00.1 Health Concerns Section Related Observation LastModified by Organization Detai ls LastModified Time None Recorded Concern Status LastModified by Organization Details LastModified Time None Recorded Advance Directives Directive None Recorded Payers Insurance Date Sequence Insurance Name Policy Number Policy Storey Covered Member ID Storey Member ID Guarantor Name 10/10/2023 1 MEDICAID-ID: [facility] Renee Yuan [id number] Renee Yuan 09/05/2023 1 BCBS-ID (PP[place]) [id number] Renee Yuan [id number] Renee Yuan 10/15/2023 2 [facility] NET PLAN (MEDICAID HMO) [employer] Renee Yuan [id number] Renee Yuan Notes Date Note Type Note Provider Name and Address Organization Details Recorded Time 02/27/2023 text/html Skin Redness UCReported bypatient.Location:rig ht foot; 17 year old female comes in for her planter growth evaluation . she was treated by her key worker with freezing but she thinks it has grown back. and seem more red and redness is spreading. denies any fever or fever with chills. Quality:painful;erythe matous;raised;warm Severity:improving;mod erate;constant Duration:6 weeks Onset:gradual onset Alleviating factors:rest; elevation Aggravating factors:standing Symptoms:no fever; no nausea; no vomiting;swelling Scar Viramontes NP [address] [place], [address], [place] [email or web address] 02/27/2023 08:39:27 09/05/2023 text/html Generic HPI TemplateReported bypatient.Notes:18 y.o female pt presents here for refill of valtrex for COLD SORE. New sx's started yesterday. Denies other sx's GENEVA HANSEN [address] [place], [address], [place] [email or web address] 09/05/2023 08:46:24 OBGyn Episode No OBEpisode recorded.
--- NOTE | 2024-09-02 09:37 | MHC.OFFWIV ---
Intake Vital Signs 09/02/24 09:42 Height 5 ft 1 in Weight 148 lb 2 oz BMI 28.0 BP 102/78 Blood Pressure Location Lt brachial Position Sitting Respiration 16 Pulse 75 Pulse Source Pulse Oximeter Temp 98.3 F Temp Source Oral Pulse Oximetry (%) 98 Oxygen Delivery Method Room Air Intake Visit Reasons: EP Rt ankle sprain? Swelling Intake Note: patient here c/o Rt ankle sprain? 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 - The patient sustained an injury to her ankle while playing golf 3d ago, hearing a crack and immediate pain upon rolling her ankle. - Despite the initial pain, she was able to walk on the ankle and continues to do so, though swelling persists. - The area of concern is primarily around the ankle, with no pain noted on the top of the foot or toes. - The patient's mother is more concerned about the swelling than the patient herself, leading to this visit. - There is no chance of . Physical Exam General: Cooperative, healthy appearing, comfortable, no acute distress and well developed Orientation: Patient oriented x3 Limitations: No limitations Head: Normal to inspection Ears: Hearing grossly normal bilaterally Nose: Normal External nose present Face and sinus: Normal facial exam Eyes: Appearance normal, both eyes and all related structures Neck: Normal visual inspection and Yes full ROM Respiratory: Normal respiratory effort and able to speak in complete sentences. Skin: No rashes or lesions noted Neuro: Patient oriented x3 Extremities: Right ankle lateral malleolus with mild edema PFSH Medical History (Updated 09/02/24 @ 10:13 by Sofia Pérez PA-C) Recurrent cold sores Overweight (BMI 25.0-29.9) Acne Surgical History H/O wisdom tooth extraction Family History Mother Essential hypertension Hyperuricemia Valentino's palsy Father Hypercholesteremia Prostate cancer Social History Housing: House Alcohol intake: never Patient Tobacco Use Status: Never used Tobacco e-Cigarette/Vaping Use: Never Used Second Hand Smoke Exposure: No Substance Use Type: Marijuana Patient : No service: No Current occupational status: student Cognitive needs: No Hearing needs: No Vision needs: No Female Reproductive History Menstrual Date of last menstrual period: 08/23/24 Review of Systems Const All systems reviewed & are unremarkable except as noted in HPI and below Physical Exam Vital Signs: Last Vital Signs Temp 98.3 F 09/02/24 09:42 Pulse 75 09/02/24 09:42 Resp 16 09/02/24 09:42 BP 102/78 09/02/24 09:42 Pulse Ox 98 09/02/24 09:42 Oxygen Delivery Method Room Air 09/02/24 09:42 BMI result Body Mass Index 28.0 Assessment & Plan Assessment & Plan (1) Right ankle sprain: Code(s): S93.401A - Sprain of unspecified ligament of right ankle, initial encounter Qualifiers: Encounter type: initial encounter Involved ligament of ankle: anterior talofibular ligament Qualified Code(s): S93.491A - Sprain of other ligament of right ankle, initial encounter Plan: I suspect an ankle sprain given the patient's ability to ambulate despite the swelling, but an X-ray will be performed to rule out any fractures. If the X-ray is unremarkable, treatment will consist of rest, ice, NSAIDs such as Naproxen, and the application of an Bernard wrap for support. The patient was guided on obtaining the X-ray and will return for further evaluation based on the imaging results. No urine test was necessary due to the absence of concerns. XR/XR ankle RT min 3V IMPRESSION: Mild soft tissue swelling over the lateral malleolus. No evidence of fracture of the right ankle. Bernard wrapped ankle, recommended RICE and follow up with PCP if no gradual improvement in pain. Patient was informed and verbally consented to the use of an ambient scribe for clinic note documentation during this visit. Orders: Orders XR ankle RT min 3V Today S93.401A - Sprain of unspecified ligament of right ankle, initial encounter Coding Level of Care Code Est Pt Level 4 (27559) Diagnoses Sprain of anterior talofibular ligament of right ankle, initial encounter S93.491A Encounter type: initial encounter Involved ligament of ankle: anterior talofibular ligament
[2024-09-02 09:42] VITALS: BP 102/78; PULSE 75; RESP 16; TEMP 36.8; O2SAT 98; BMI 28.0
== END 2024-09-02 11:39 | disposition home or self-care (01) ==
PROVIDERS: PCP Internal Medicine; Visit Provider Physician Assistant
DX: S93.491A Sprain of other ligament of right ankle, initial encounter (principal)

== ENCOUNTER 2024-09-02 08:53 | Outpatient (REF) | payer BC, OTHER, SELFPAY ==
--- NOTE | ~2024-09-02 | XR_ITS ---
EXAMINATION: XR ANKLE 3 OR MORE VIEWS RIGHT HISTORY: S93.401A - Sprain of unspecified ligament of right ankle, initial encounter COMPARISON: There are no prior studies available for comparison. FINDINGS: Three views of the right ankle are submitted. Osseous mineralization is normal. There is no fracture or dislocation. The joint spaces are preserved. There is mild soft tissue swelling over the lateral malleolus. XR/XR ankle RT min 3V IMPRESSION: Mild soft tissue swelling over the lateral malleolus. No evidence of fracture of the right ankle. Electronically signed by: Jose C Oliveros MD 09/02/2024 10:31 AM EDT
== END 2024-09-02 08:54 | disposition home or self-care (01) ==
LOC: HO.HMGCX 08:53
PROVIDERS: PCP Internal Medicine; Visit Provider Physician Assistant
DX: S93.491A Sprain of other ligament of right ankle, initial encounter (principal)
CPT/HCPCS: 73610

== ENCOUNTER → 2024-09-02 10:18 | Outpatient (BNV) | payer BC, OTHER, SELFPAY | PROVIDERS: PCP Internal Medicine; Visit Provider Radiology Diagnostic Radiology | DX: M70.971 Unspecified soft tissue disorder related to use, overuse and pressure, right ankle and foot (principal) | CPT/HCPCS: 73610 ==